=== PATIENT | male | born 1975 | race Caucasian/White ===

== ENCOUNTER 2018-04-05 12:04 | Emergency (ER) | payer OTHER ==
[~2018-04-05] VITALS: Ht 175.3 cm; Wt 119.0 kg
[2018-04-05 12:06] VITALS: TEMP 36.9; Ht 175.3 cm; Wt 119.0 kg
[2018-04-05 12:38] VITALS: BP 128/88; PULSE 63; O2SAT 97
--- NOTE | 2018-04-05 15:37 | EMERGENCY ROOM VISIT NOTE ---
ED Visit Note First contact with patient: 12:18 Chief Complaint: Vein bleeding. History of Present Illness: Mr. Maxwell is a 42-year-old male who ambulates into the ED complaining of a wound to the right lower leg and bleeding. Historically patient has had a history of varicose veins and has had multiple surgeries for his varicosities. Patient reports approximately 1-2 hours prior to arrival at the hospital. He reports he was taken a shower and scratching his lower leg and developed bleeding over a varicosity. He reports the bleeding was pulsating. He reports he added direct pressure and within 10 minutes bleeding had resolved. He reports he came to the ED today for recheck. Currently he reports he is pain and symptom-free. He denies any recent abnormal bleeding, early bruising, bloody stools, bloody urine. Review of Systems: As noted above in history of present illness. Past Medical History: As previously noted. Current Medications: Patient denies. Allergies to Medications: Patient denies. Social History: Patient is currently employed; he feels safe in his home environment; he admits to tobacco and alcohol use. Physical Examination: Vital Signs: Date Time Temp Pulse Resp B/P (MAP) Pulse Ox O2 Delivery O2 Flow Rate FiO2 04/05/18 12:38 63 20 128/88 97 04/05/18 12:06 36.9 60 18 99 Room Air GENERAL: 42-year-old male in no acute distress, nontoxic-appearing, afebrile and hemodynamically stable. NEUROLOGICAL: Awake, alert and oriented to person, place and time. Answering questions appropriately and following commands. Normal gait. Good hand eye coordination. No focal motor sensory deficits. SKIN: Warm, dry and pink. Right Lower Leg: Patient has a superficial abrasion over the anterior aspect measuring approximately 3 mm. This area is now scabbed over and there is no active bleeding. No signs of infection. RIGHT LOWER EXTREMITY: No gross bony deformity. No tenderness throughout the hip, lower leg or ankle. I did manipulate the patient's abrasion that was noted above and had no recurrence of bleeding. Patient had full range of motion at the knee and ankle without difficulty. Distal neurovascular statuses are intact and equal bilaterally. ED Course: Patient is assessed as noted above. Patient was educated about today's findings and instructed on his treatment plan ; he verbalized understanding and agreement with this plan. Clinical Impression: Right leg abrasion. Bleeding, resolved. Disposition: Patient discharged home in stable condition; prior to departure he was pain and symptom-free per Plan: Wound care, pain control and signs of infection were discussed with the patient. Patient was encouraged to follow-up with family physician or return to the ED for any signs of infection. Patient was encouraged to return to the ED for uncontrolled recurrent bleeding or any new/concerning symptoms.
== END 2018-04-05 12:39 | disposition home or self-care (01) ==
LOC: C.EDB 12:05 → C.EDD 12:39
DX: S80.811A Abrasion, right lower leg, initial encounter (principal); X58.XXXA Exposure to other specified factors, initial encounter; Z72.0 Tobacco use